=== PATIENT | female | born 1985 | race Two or more races ===

== ENCOUNTER 2019-05-02 14:08 | Emergency (ER) | payer MEDICAID, OTHER ==
[~2019-05-02] VITALS: Ht 157.5 cm; Wt 86.2 kg
--- NOTE | 2019-05-02 15:02 | NUR ---
CAME IN TO THE ER C/O VAGINAL BLEEDING x 2 WEEKS, MORE BLEEDING TODAY. SOAKING PAD EVERY HOUR. NOW HAVING LARGE CLOTS. DENIES PAIN ASSOCIATED WITH BLEEDING, HOWEVER DOES ENDORSE A HEADACHE. , LMP MID FEBRUARY. CURRENTLY USES NUVA RING. DENIES DIZZINESS, WEAKNESS, N/V. NO ACUTE DISTRESS NOTED. MADE COMFORTABLE AND READY FOR EVAL.
--- NOTE | 2019-05-02 15:12 | NUR ---
urine collected and sent to lab
[2019-05-02 15:22] LABS: BASOPHILS % (AUTO) 0.3 % (0.0-2.0); EOSINOPHILS % (AUTO) 0.6 % (0.0-6.0); HEMATOCRIT 36 % (33-45); HEMOGLOBIN 11.9 g/dL (11.5-14.8); LYMPHOCYTES # (AUTO) 2.2 /CMM (0.8-4.8); LYMPHOCYTES % (AUTO) 34.7 % (20.0-44.0); MEAN CORPUSCULAR HGB CONC 33 g/dl (31.0-36.0); MEAN CORPUSCULAR VOLUME 89 fL (82-100); MONOCYTES # (AUTO) 0.4 /CMM (0.1-1.30); MONOCYTES % (AUTO) 5.9 % (2.0-12.0); NEUTROPHILS # (AUTO) 3.7 /CMM (1.8-8.9); NEUTROPHILS % (AUTO) 58.5 % (43.0-81.0); PLATELET COUNT (AUTO) 270 /CMM (150-450); RED BLOOD CELL COUNT(AUTO) 4.05 MIL/uL (4.0-5.2); WHITE BLOOD COUNT (AUTO) 6.3 K/uL (4.3-11.0)
[2019-05-02] MEDS ORDERED: IV NS 0.9% 1,000 ML BAG IV ONE (15:30)
[2019-05-02 15:42] LABS: CALCIUM, SERUM 9.1 mg/dL (8.5-10.1); CREATININE 0.7 mg/dL (0.6-1.3); POTASSIUM 3.7 mmol/L (3.5-5.1)
[2019-05-02] MEDS ORDERED: ACETAMINOPHEN ES 500 MG TABLET ONE (15:48)
[2019-05-02] MEDS ORDERED: ACETAMINOPHEN 325 MG TABLET PO ONE (16:00)
--- NOTE | 2019-05-02 17:23 | NUR ---
Patient discharged to home in stable condition. Written and verbal after care instructions given. Patient verbalizes understanding of instruction. IV removed. Catheter intact and site benign. Pressure and 4x4 applied to site. No bleeding noted.
[2019-05-02 17:24] VITALS: BP 126/77
[2019-05-02] MEDS ORDERED: ACETAMINOPHEN ES 500 MG TABLET PO ONE (17:30)
== END 2019-05-02 17:24 | disposition home or self-care (01) ==
LOC: ER 14:08
DX: N93.9 Abnormal uterine and vaginal bleeding, unspecified (principal); R42 Dizziness and giddiness; Z60.2 Problems related to living alone; Z32.02 Encounter for pregnancy test, result negative
CPT/HCPCS: 36415; 80048; 84702; 84703; 85025; 86850; 96360; 99283; J7030